=== PATIENT | male | born 1995 | race Caucasian/White ===

== ENCOUNTER 2024-07-07 22:35 | Emergency (ER) | payer BC ==
[~2024-07-07] VITALS: Ht 175.3 cm; Wt 92.3 kg
[2024-07-07] MEDS ORDERED: MULTI PRO CAPS1 EACH PO (22:47)
[2024-07-07] MEDS ORDERED: ZYRTEC ALLERGY10 MG PO (22:47)
[2024-07-07] MEDS ORDERED: CEPHALEXIN500 M1 PO (23:08)
[2024-07-07] MEDS ORDERED: Cephalexin 500 MG CAP PO ONE (23:15)
[2024-07-07 23:23] VITALS: BP 119/88
== END 2024-07-07 23:25 | disposition home or self-care (01) ==
LOC: ED 22:35
DX: L03.114 Cellulitis of left upper limb (principal)